=== PATIENT | female | born 1940 | race Caucasian/White ===

== ENCOUNTER 2019-07-07 17:15 | Inpatient (IN) | payer OTHER, MEDICARE ==
--- NOTE | 2019-07-07 17:19 | PDOC ---
History of Present Illness - History of Present Illness Initial Comments: 07/07/19 17:41 78f with pmh of b/l hip replacement, osteoarthritis, presents to the ED with sudden pain in her left knee as she was walking from her hair salon to her car, unable to bear weight on it. No fall. Had pain in her knee for month but had this sudden exacerbation today unlike she ever had before. Took an Advil 200mg today at 2pm with no relief. Her leg is chronically shortened and externally rotated. 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 Lives alone. Recent travel 2 weeks ago to [place], drove back 12h, 5 pee breaks. No pain or swelling after that. No active cancer, not on any hormones, no sob, no cough. <Gabino Alex - Last Filed: 07/08/19 02:33> - General History Source: Patient Exam Limitations: No Limitations <Massiel Flores - Last Filed: 07/09/19 09:29> - General Stated Complaint: LEFT LEG PAIN Time Seen by Provider: 07/07/19 17:17 Past History <Gabino Alex - Last Filed: 07/08/19 02:33> <Massiel Flores - Last Filed: 07/09/19 09:29> - Past Medical History Allergies/Adverse Reactions: Allergies Allergy/AdvReac Type Severity Reaction Status Date / Time No Known Allergies Allergy Verified 07/07/19 17:44 Review of Systems - Review of Systems Able to Perform ROS?: Yes Is the patient limited Occitan proficient: No Constitutional: No: Symptoms Reported HEENTM: No: Symptoms Reported Respiratory: No: Symptoms reported Cardiac (ROS): No: Symptoms Reported ABD/GI: No: Symptoms Reported : No: Symptoms Reported Musculoskeletal: Yes: See HPI Integumentary: No: Symptoms Reported All Other Systems: Reviewed and Negative <Gabino Alex - Last Filed: 07/08/19 02:33> *Physical Exam - Physical Exam General Appearance: Yes: Nourished, Appropriately Dressed, Apparent Distress HEENT: positive: EOMI, FARIBA, Normal ENT Inspection Respiratory/Chest: positive: Lungs Clear, Normal Breath Sounds. negative: Chest Tender, Respiratory Distress Cardiovascular: positive: Regular Rhythm, Regular Rate, S1, S2 Gastrointestinal/Abdominal: positive: Normal Bowel Sounds, Flat, Soft. negative : Tender Musculoskeletal: positive: Normal Inspection. negative: CVA Tenderness Extremity: positive: Normal Capillary Refill, Normal Inspection, Other (right leg short and ext rotated (chronic), able topassively range the knee, unable to bear weight. Knee joint has no tenderness, swelling, no erythma, normal temp compared to right one. ) Integumentary: positive: Normal Color, Dry, Warm Neurologic: positive: Fully Oriented, Alert, Normal Mood/Affect, Normal Response , Motor Strength 5/5 <Gabino Alex - Last Filed: 07/08/19 02:33> - Vital Signs Last Vital Signs Temp Pulse Resp BP Pulse Ox 98.6 F 88 18 122/58 L 97 07/09/19 09:00 07/09/19 09:00 07/09/19 09:00 07/09/19 09:00 07/08/19 20:58 <Massiel Flores - Last Filed: 07/09/19 09:29> Procedures - Consent Consent obtained: Written, From Patient - Joint Reduction Left Joint Reduction Site: left: Hip Pre-Procedure NV Exam: normal Conscious Sedation: Yes (Ketamine and Propofol) Reduction Attempts: 2 Procedure: Traction Counter Traction Post-Procedure NV Exam: normal Complications: No Post Joint Reduction Film: joint not reduced Immobilized: Yes Progress: 07/08/19 00:17 Unsuccessful <Gabino Alex Last Filed: 07/08/19 02:33> ED Treatment Course - LABORATORY CBC & Chemistry Diagram: 07/07/19 21:49 07/07/19 21:49 <Gabino Alex - Last Filed: 07/08/19 02:33> - LABORATORY CBC & Chemistry Diagram: 07/08/19 07:45 07/08/19 07:45 - ADDITIONAL ORDERS Additional order review: 07/07/19 21:49 RBC 4.38 MCV 73.2 L MCHC 30.8 L RDW 18.5 H MPV 7.4 L Neutrophils % 65.5 Lymphocytes % 26.5 Monocytes % 6.9 Eosinophils % 0.1 Basophils % 1.0 - Medications Given in the ED: ED Medications Discontinued Medications Generic Name Dose Route Start Last Admin Trade Name Freq PRN Reason Stop Dose Admin Acetaminophen 650 mg 07/07/19 17:40 07/07/19 18:48 Tylenol - PO 07/07/19 17:41 650 mg ONCE ONE Administration Acetaminophen 1,000 mg 07/08/19 02:20 07/08/19 05:32 Ofirmev Injection - IVPB 1,000 mg Q6H PRN Administration PAIN LEVEL 1-5 Enoxaparin Sodium 40 mg 07/08/19 14:00 07/08/19 14:34 Lovenox - SQ 40 mg DAILY MINOO Administration Fentanyl 50 mcg 07/08/19 17:51 07/08/19 17:53 Sublimaze Injection - IVPUSH 50 mcg [id number] PRN Administration PAIN-PACU ORDER X 4 DOSES ONLY Sodium Chloride 1,000 mls @ 75 mls/hr 07/08/19 02:30 07/08/19 03:30 Normal Saline - IV 75 mls/hr ASDIR MINOO Administration Iron Sucrose 100 mg/ Sodium 100 mls @ 200 mls/hr 07/08/19 14:30 07/08/19 16: 01 Chloride IVPB 07/08/19 14:59 200 mls/hr ONCE ONE Administration Ketamine HCl 27.5 mg 07/07/19 22:49 07/07/19 23:29 Ketalar - IVPUSH 07/07/19 22:50 27.5 mg ONCE ONE Administration Ketamine HCl 27.5 mg 07/08/19 00:01 07/08/19 00:15 Ketalar - IVPUSH 07/08/19 00:02 Not Given ONCE ONE Ketamine HCl 20 mg 07/08/19 00:01 07/08/19 00:14 Ketalar - IVPUSH 07/08/19 00:02 20 mg ONCE ONE Administration Ketamine HCl 20 mg 07/08/19 00:13 07/08/19 00:14 Ketalar - IVPUSH 07/08/19 00:14 20 mg ONCE ONE Administration Ketorolac Tromethamine 30 mg 07/07/19 17:40 07/07/19 18:47 Toradol Injection - IM 07/07/19 17:41 30 mg ONCE ONE Administration Morphine Sulfate 4 mg 07/08/19 01:05 07/08/19 01:18 Morphine Injection - IVPUSH 07/08/19 01:06 4 mg ONCE ONE Administration Morphine Sulfate 2 mg 07/08/19 02:22 07/08/19 08:42 Morphine Sulfate IVPUSH 2 mg Q6H PRN Administration PAIN LEVEL 6-10 Propofol 27,500 mcg 07/07/19 22:52 07/07/19 23:29 Diprivan - IVPUSH 07/07/19 22:53 27,500 mcg ONCE ONE Administration Propofol 27,500 mcg 07/08/19 00:01 07/08/19 00:15 Diprivan - IVPUSH 07/08/19 00:02 Not Given ONCE ONE Propofol 20,000 mcg 07/08/19 00:02 07/08/19 00:14 Diprivan - IVPUSH 07/08/19 00:03 20,000 mcg ONCE ONE Administration Propofol 20,000 mcg 07/08/19 00:14 07/08/19 00:15 Diprivan - IVPUSH 07/08/19 00:15 20,000 mcg ONCE ONE Administration <Massiel Flores - Last Filed: 07/09/19 09:29> Medical Decision Making - Medical Decision Making 07/07/19 17:56 78f with left knee/thigh pain. Low suspicion for DVT as the patient has Wells score of 0. No swelling, tenderness, immobilizations. Seems more like MSK pain. Obtaining plain films of the knee, femur and hip. Pain control with Toradol and Tylenol. Disposition will depend on ambulatory status as the patient lives alone. 07/07/19 18:48 Sent films to imaging professional poker player./ 07/07/19 20:57 There is a total left hip prosthesis with dislocation of the femoral component, suspect anterior dislocation although difficult to assess in the absence of a lateral projection There are bony productive changes about the left hip and acetabulum Total right hip arthroplasty with prosthetic components intact and in normal anatomic alignment The bony pelvis is intact The femur is intact There are degenerative changes in the left knee 07/07/19 21:00 Patient originally wanted to sign AMA convinced her to stay for admission. 07/07/19 21:[address] Wang 07/08/19 02:33 Dr. Wang recommending we try to reduce the dislocation in the ED. Moderate sedation wqith Ketamine and Propofol. Counter traction applied without success x2. Patient in more pain now. Repeat xray show worsenign fracture of the hip post reduction attempt. Patient admitted. <Gabino Alex - Last Filed: 07/08/19 02:33> *DC/Admit/Observation/Transfer - Discharge Dispostion Decision to Admit order: Yes <Gabino Alex - Last Filed: 07/08/19 02:33> <Massiel Flores - Last Filed: 07/09/19 09:29> Diagnosis at time of Disposition: Dislocation of internal left hip prosthesis, initial encounter - Discharge Dispostion Condition at time of disposition: Fair
[2019-07-07] MEDS ORDERED: KETOROLAC TROMETHAMINE 30 MG/1 ML VIAL IM ONE (17:40)
[2019-07-07] MEDS ORDERED: ACETAMINOPHEN 325 MG TABLET (FP) PO ONE (17:40)
[2019-07-07] MEDS ORDERED: ACETAMINOPHEN 325 MG TABLET (FP) ONE (18:07)
[2019-07-07] MEDS ORDERED: KETOROLAC TROMETHAMINE 30 MG/1 ML VIAL ONE (18:07)
--- NOTE | 2019-07-07 19:49 | PDOC ---
Documentation entered by Bryant Mg SCRIBE, acting as scribe for Massiel Flores MD. Massiel Flores MD: This documentation has been prepared by the Haritha goldberg Elijah, SCRIBE, under my direction and personally reviewed by me in its entirety. I confirm that the documentation accurately reflects all work, treatment, procedures, and medical decision making performed by me. Attending Attestation - Resident Resident Name: AlexGabino - ED Attending Attestation I have performed the following: I have examined & evaluated the patient, The case was reviewed & discussed with the resident, I agree w/resident's findings & plan - HPI HPI: 07/07/19 19:50 Patient is a 78 year old female with a significant past medical history of b/l hip replacement and osteoarthritis who presents to the ED with pain in the Left knee occurring earlier today. Patient reports that she was walking to the [employer] through a parking lot and was suddenly unable to bear weight. Patient is unaware of any movement she may have done that triggered the pain but notes she had sun poisoning while on vacation which resulted in both of her legs swelling up. Patient denies abdominal pain, numbness tingling and weakness. Allergies: NKA Surgical History: B/L Hip Replacement - Physicial Exam PE: 07/07/19 19:56 General: NAD, well appearing Abdomen: soft, no tenderness, nondistended Vascular: 2+ DP pulses symmetric and equal. Back: no midline tenderness, no stepoffs, FROM MSK: + LLE chronically external rotation and shortened. notable for soft compartments, Cap refill <2 sec. Proximal and distal strength 5/5, correspondence review clerk strength 5/5 - equal and symmetric. Plantar flexion and dorsiflexion 5/5. FROM. Sensation grossly intact to light touch. pelvis stable, no prox or distal lower extrem tenderness to palp Neuro: alert, no focal neurologic deficits Skin: color normal color, warm and well perfused. Cap refill <2 sec. 07/07/19 22:37 - Medical Decision Making 07/07/19 19:46 hpi as documented VS reviewed, mild tachy initially 2/2 pain Vital Signs Temp Pulse Resp BP Pulse Ox 98.7 F 101 H 16 138/70 100 07/07/19 17:15 07/07/19 17:15 07/07/19 17:15 07/07/19 17:15 07/07/19 17:15 DDX. msk strain, dislocation, arthritis, hardware malfunction. xray - s/p hardware/hip replacement. chronic shortening of LLE, neuro vasc intact. pt admits LLE is 1/2 inch shorter than contralateral, uses cane to ambulate last ortho procedure ~25 years ago, for THR. xray with left periprosthetic dislocation., no fx. with prior h/o surgery, will be difficult, ortho cs appreciated, Dr Wang/ Bruno decision science analyst and discussed care sent over image, advised closed reduction and conscious sedation. first time dislocation, basic labs/txs in case of operative management, unremarkable. 07/07/19 22:46 - procedural sedation for closed reduction attempts made with traction/countertraction x 2, unsuccessful, pt received over 1mg/kg of ketofol, due to progression and escalating doses and risks of respiratory depression, apnea and hemodynamic changes, aborted due to lack of successful by resident and myself. there was a click audible, post reduction xr with anterior dislocation still present. prior old fx visualized and pronounced, with the hardware still in place, likely from reduction attempts. this was discussed with the patient, made aware of complication and difficulty with reduction with hardware in place and fracture at the prox femur.. no hemodynamic changes, maintained airway, appropriate nystagmus with ketamine. will admit for periprosthetic hip dislocation failing closed reduction attempt with procedure sedation, ortho eval in the AM and further management, possibly operative. unable to ambulate with dislocation, unsafe for discharge. 07/08/19 00:13 07/08/19 00:16 07/08/19 01:13 07/08/19 02:14
--- NOTE | 2019-07-07 21:55 | PN ---
Teaching Attending Note Name of Resident: Stephon Mcwilliams ATTENDING PHYSICIAN STATEMENT I saw and evaluated the patient. I reviewed the resident's note and discussed the case with the resident. I agree with the resident's findings and plan as documented. SUBJECTIVE: Patient is a 78 year old woman with PMH of Bilateral hip replacement (20 years ago) and Osteoarthritis who presents to the ER with sudden pain in her left knee as she was walking from her hair salon to her car, unable to bear weight on it. Did not fall down. Had pain in her knee for month but had this sudden exacerbation today unlike she ever had before. Took an Advil 200mg today at 2 pm with no relief. Her leg is chronically shortened and externally rotated. Lives alone. Recent travel 2 weeks ago to [place], drove back 12h, 5 pee breaks. No pain or swelling after that. No active cancer and not on any hormones. Takes 324 mg Aspirin daily. Has insomnia. Has FH of Afib. Denies SOB, cough, fever, chills, nausea, vomiting, chest pain, abdominal pain, dysuria or diarrhea. OBJECTIVE: Alert Vital Signs Period Temp Pulse Resp BP Sys/Raymond Pulse Ox Last 24 Hr 98.7 F 91-101 16-18 138-143/68-70 98-100 HEENT: No Jaundice, eye redness or discharge, PERRLA, EOMI. Normocephalic, atraumatic. External ears are normal and hearing is grossly intact. No nasal discharge. Neck: Supple, nontender. No palpable adenopathy or thyromegaly. No JVD Chest: Good effort. Clear to auscultation and percussion. Heart: Regular. No S3, rub or murmur Abdomen: Not distended, soft, nontender and no HSM. No rebound or guarding. Normal bowel sounds. Ext: Peripheral pulses intact. No leg edema. LLE is shorter and externally rotated. Tender left hip and limited ROM. Skin: Warm and dry. No petechiae, rash or ecchymosis. Neuro: Alert. Oriented x3. CN 2-12 grossly intact. Sensation grossly intact in all four extremities and DTR are symmetric. Psych: Appropriate mood and affect. Good insight. Current Medications Generic Name Dose Route Start Last Admin Trade Name Freq PRN Reason Stop Dose Admin Acetaminophen 1,000 mg 07/08/19 02:20 Ofirmev Injection - IVPB Q6H PRN PAIN LEVEL 1-5 Heparin Sodium (Porcine) 5,000 unit 07/08/19 10:00 Heparin - SQ Q8H-IV MINOO Sodium Chloride 1,000 mls @ 75 mls/hr 07/08/19 02:30 Normal Saline - IV ASDIR MINOO Morphine Sulfate 2 mg 07/08/19 02:22 Morphine Injection - IVPUSH Q6H PRN PAIN LEVEL 6-10 Abnormal Lab Results 07/07/19 07/07/19 21:49 21:49 Hgb 9.9 L Hct 32.0 L MCV 73.2 L MCH 22.5 L MCHC 30.8 L RDW 18.5 H Plt Count 469 H MPV 7.4 L Chloride 110 H Anion Gap 4 L BUN 18.5 H ASSESSMENT AND PLAN: 1. Dislocated Left Hip Prosthesis/?Left Hip Fracture - Initial hip xray showed that "there is a total left hip prosthesis with dislocation of the femoral component, suspect anterior dislocation although difficult to assess in the absence of a lateral projection. There are bony productive changes about the left hip and acetabulum. Total right hip arthroplasty with prosthetic components intact and in normal anatomic alignment. The bony pelvis is intact. The femur is intact There are degenerative changes in the left knee." After an attempted bedside reduction, repeat xray showed possible left femur fracture. Ortho being consulted. Will get Urinalysis, EKG and use tylenol for pain control. Hydrate gently. 2. Low MCV Anemia - May have GI blood loss partly due to her daily use of Aspirin 324 mg. Will refer to GI for possible EGD and colonoscopy. Get basic anemia work up including serial stool guaiacs, reticulocyte count and iron studies. Counseled to stop high dose NSAIDS and rather use Aspirin 81 mg. 3. DVT prophylaxis - Lovenox 40 mg SQ q 24 hours. 4. Advance directives - Full code
[2019-07-07 21:56] LABS: EOS % 0.1 % (0-4.5); HEMOGLOBIN 9.9 GM/dL (10.7-15.3); LYMPH % 26.5 % (8-40); MCH 22.5 pg (25.7-33.7); MCHC 30.8 g/dl (32.0-36.0); MEAN CELL VOLUME 73.2 fl (80-96); MEAN PLT VOLUME 7.4 fl (7.5-11.1); MONO % 6.9 % (3.8-10.2); NEUT % 65.5 % (42.8-82.8); PLATELET COUNT 469 K/MM3 (134-434); RBC 4.38 M/mm3 (3.60-5.2); RDW 18.5 % (11.6-15.6); WHITE BLOOD COUNT 8.6 K/mm3 (4.0-10.0)
[2019-07-07 22:22] LABS: ALBUMIN 3.4 g/dl (3.4-5.0); BILIRUBIN,TOTAL 0.3 mg/dL (0.2-1); BLOOD UREA NITROGEN 18.5 mg/dL (7-18); CALCIUM 9.4 mg/dL (8.5-10.1); CREATININE 0.9 mg/dL (0.55-1.3); POTASSIUM 4.2 mmol/L (3.5-5.1); TOT PROT 6.8 g/dl (6.4-8.2)
[2019-07-07 22:34] LABS: INR 1.05 (0.83-1.09); PROTHROMBIN TIME (PATIENT) 12.4 SEC (9.7-13.0)
[2019-07-07] MEDS ORDERED: KETAMINE HCL 200 MG/20 ML VIAL IVPUSH ONE (22:49)
[2019-07-07] MEDS ORDERED: PROPOFOL 200 MG/20 ML VIAL IVPUSH ONE (22:52)
[2019-07-07] MEDS ORDERED: PROPOFOL 20 ML ONE (23:23)
[2019-07-07] MEDS ORDERED: KETAMINE HCL 200 MG/20 ML VIAL ONE (23:23)
[2019-07-08] MEDS ORDERED: PROPOFOL 200 MG/20 ML VIAL IVPUSH ONE ×3 (00:01→00:14)
[2019-07-08] MEDS ORDERED: KETAMINE HCL 200 MG/20 ML VIAL IVPUSH ONE ×3 (00:01→00:13)
[2019-07-08] MEDS ORDERED: morphine CARPU-JECT 4 MG/1 ML DISP.SYRIN IVPUSH ONE (01:05)
[2019-07-08] MEDS ORDERED: morphine SULFATE 4 MG/ML VIAL ONE (01:13)
[2019-07-08 02:06] VITALS: BMI 22.0
[2019-07-08] MEDS ORDERED: ACETAMINOPHEN 1000 MG/100 ML VIAL (NON FORMULARY) IVPB PRN ×2 (02:20→17:43)
[2019-07-08] MEDS ORDERED: MORPHINE SULFATE 2 MG/ML VIAL IVPUSH PRN (02:22)
[2019-07-08] MEDS ORDERED: SODIUM CHLORIDE 1,000 ML IV SCH ×2 (02:30→17:43)
--- NOTE | 2019-07-08 02:49 | HP ---
CHIEF COMPLAINT: LEFT hip pain PCP: None; pt denies any primary medical care and never had screening including pap smear, mammography, DEXA, colonoscopy HISTORY OF PRESENT ILLNESS: Pt describes walking in parking lot on even asphalt when she was suddenly unable to bear wt on the LEFT hip. Pain is located at the LEFT hip, sudden onset , sharp character, no association, made better by removal of wt bearing, constant, not aleviated by by NSAID. No trauma, no fall, no LOC. In ED initial xray demonstrated prosthetic femur dislocation. Reduction attempted in ED w pt under ketamine and propofol sedation. Pain was not relieved. 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 Lives alone Smoking: denies Alcohol: denies Drugs: denies Family History: Father: denies; Mother: Cardiomyopathy, a fib, osteoarthritis, macular degeneration Allergies: KNFDA No Known Allergies Allergy (Verified 07/07/19 17:44) HOME MEDICATIONS: REVIEW OF SYSTEMS CONSTITUTIONAL: Absent: fever, chills, diaphoresis, generalized weakness, malaise, loss of appetite, weight change HEENT: Absent: rhinorrhea, nasal congestion, throat pain, throat swelling, difficulty swallowing, mouth swelling, ear pain, eye pain, visual changes CARDIOVASCULAR: Absent: chest pain, syncope, palpitations, irregular heart rate, lightheadedness , peripheral edema RESPIRATORY: Absent: cough, shortness of breath, dyspnea with exertion, orthopnea, wheezing, stridor, hemoptysis GASTROINTESTINAL: Absent: abdominal pain, abdominal distension, nausea, vomiting, diarrhea, constipation, melena, hematochezia GENITOURINARY: Absent: dysuria, frequency, urgency, hesitancy, hematuria, flank pain, genital pain MUSCULOSKELETAL: Absent: myalgia, arthralgia, joint swelling, back pain, neck pain SKIN: Absent: rash, itching, pallor HEMATOLOGIC/IMMUNOLOGIC: Absent: easy bleeding, easy bruising, lymphadenopathy, frequent infections ENDOCRINE: Absent: unexplained weight gain, unexplained weight loss, heat intolerance, cold intolerance NEUROLOGIC: Absent: headache, focal weakness or paresthesias, dizziness, unsteady gait, seizure, mental status changes, bladder or bowel incontinence PSYCHIATRIC: Absent: anxiety, depression, suicidal or homicidal ideation, hallucinations. PHYSICAL EXAMINATION Vital Signs - 24 hr 07/07/19 07/07/19 07/07/19 17:15 20:55 23:06 Temperature 98.7 F Pulse Rate 101 H Pulse Rate [ 91 H 81 Left] Respiratory 16 18 18 Rate Blood Pressure 138/70 Blood Pressure 143/68 115/56 L [Left] O2 Sat by Pulse 100 98 100 Oximetry (%) 07/08/19 07/08/19 07/08/19 01:10 01:58 02:09 Temperature 98.6 F 97.7 F Pulse Rate 89 Pulse Rate [ 84 Left] Respiratory 22 H 20 Rate Blood Pressure 156/78 Blood Pressure 159/80 [Left] O2 Sat by Pulse 99 97 Oximetry (%) GENERAL: AOx3, in no acute distress. HEAD: NCAT EYES: MICHAEL, EOMI, conjunctiva clear. EARS, NOSE, THROAT: Ears normal, nares patent, oropharynx clear without exudates. Moist mucous membranes. NECK: Normal range of motion, supple without lymphadenopathy, JVD, or masses. LUNGS: CTAB . No wheezes, and no crackles. No accessory muscle use. HEART: RRR s1 s2 ABDOMEN: Soft, BS present in all 4 quadrants, non-distended, no JVD, MUSCULOSKELETAL: No bony deformities or tenderness. No CVA tenderness. UPPER EXTREMITIES: 2+ pulses, warm, well-perfused. No cyanosis. No clubbing. No peripheral edema. LOWER EXTREMITIES: POINT TENDERNESS AREA OF LEFT PROXIMAL FEMUR 2+ pulses, warm , well-perfused. No calf tenderness. No peripheral edema. NEUROLOGICAL: Cranial nerves II-XII intact. Normal speech. Gait not appreciated. PSYCHIATRIC: Cooperative. Good eye contact. Appropriate mood and affect. SKIN: Diffuse thermal farris (returned from [place] s/p sun "poisoning") Warm, dry, normal turgor, normal capillary refill. Laboratory Results - last 24 hr 07/07/19 07/07/1919 21:49 21:49 21:49 WBC 8.6 RBC 4.38 Hgb 9.9 L Hct 32.0 L MCV 73.2 L MCH 22.5 L MCHC 30.8 L RDW 18.5 H Plt Count 469 H MPV 7.4 L Absolute Neuts (auto) 5.6 Neutrophils % 65.5 Lymphocytes % 26.5 Monocytes % 6.9 Eosinophils % 0.1 Basophils % 1.0 Nucleated RBC % 0 PT with INR INR PTT (Actin FS) 31.5 Sodium 142 Potassium 4.2 Chloride 110 H Carbon Dioxide 29 Anion Gap 4 L BUN 18.5 H Creatinine 0.9 Est GFR (CKD-EPI)AfAm 71.48 Est GFR (CKD-EPI)NonAf 61.67 Random Glucose 105 Calcium 9.4 Total Bilirubin 0.3 AST 15 ALT 18 Alkaline Phosphatase 79 Total Protein 6.8 Albumin 3.4 Blood Type Antibody Screen 07/07/19 07/07/19 21:49 21:49 WBC RBC Hgb Hct MCV MCH MCHC RDW Plt Count MPV Absolute Neuts (auto) Neutrophils % Lymphocytes % Monocytes % Eosinophils % Basophils % Nucleated RBC % PT with INR 12.40 INR 1.05 PTT (Actin FS) Sodium Potassium Chloride Carbon Dioxide Anion Gap BUN Creatinine Est GFR (CKD-EPI)AfAm Est GFR (CKD-EPI)NonAf Random Glucose Calcium Total Bilirubin AST ALT Alkaline Phosphatase Total Protein Albumin Blood Type O POSITIVE Antibody Screen Negative ASSESSMENT/PLAN: 78 y/o F w PMH ostoarthritis, insmonia, BL hip replacement c/o LEFT hip pain s/ p dislocation. Unsuccessful reduction in ED. # LEFT femur fracture - Ortho consulted - Morphine and ofrimev for pain - NPO # Microcytic anemia - Trend H/H - Retic count - R/o bleed - FOBT # Thermal burn - 2/2 to sun exposure in [place], [place] - Educated on need for sun block - Provide emolients - Hydrate appropriately # Health care maintenance - Pt has never had a primary care provider but agrees to seeing one on d/c # F/E/N - NS - Monitor electrolytes - NPO # DVT prophylaxis - Lovenox # Disposition - med/surg Truman Dueñas MD Visit type - Emergency Visit Emergency Visit: Yes ED Registration Date: 07/08/19 Care time: The patient presented to the Emergency Department on the above date and was hospitalized for further evaluation of their emergent condition. - New Patient This patient is new to me today: Yes Date on this admission: 07/08/19 - Critical Care Critical Care patient: No ATTENDING PHYSICIAN STATEMENT I saw and evaluated the patient. I reviewed the resident's note and discussed the case with the resident. I agree with the resident's findings and plan as documented. SUBJECTIVE: OBJECTIVE: ASSESSMENT AND PLAN:
[2019-07-08 08:33] LABS: HEMATOCRIT 30.1 % (32.4-45.2); HEMOGLOBIN 9.2 GM/dL (10.7-15.3); MCH 22.3 pg (25.7-33.7); MCHC 30.5 g/dl (32.0-36.0); MEAN CELL VOLUME 73.4 fl (80-96); MEAN PLT VOLUME 7.6 fl (7.5-11.1); PLATELET COUNT 439 K/MM3 (134-434); RBC 4.11 M/mm3 (3.60-5.2); RDW 18.8 % (11.6-15.6); WHITE BLOOD COUNT 7.5 K/mm3 (4.0-10.0)
[2019-07-08 08:45] LABS: INR 1.04 (0.83-1.09); PROTHROMBIN TIME (PATIENT) 12.3 SEC (9.7-13.0)
[2019-07-08 08:48] LABS: ACTIVATED PTT 30.5 SECONDS (25.2-36.5)
[2019-07-08 08:54] LABS: ALBUMIN 3.1 g/dl (3.4-5.0); BILIRUBIN,TOTAL 0.5 mg/dL (0.2-1); BLOOD UREA NITROGEN 20.4 mg/dL (7-18); CALCIUM 8.9 mg/dL (8.5-10.1); CREATININE 0.7 mg/dL (0.55-1.3); MAGNESIUM 2.5 mg/dL (1.8-2.4); PHOSPHOROUS 4.2 mg/dL (2.5-4.9); POTASSIUM 4.7 mmol/L (3.5-5.1); TOT PROT 6.2 g/dl (6.4-8.2)
[2019-07-08] MEDS ORDERED: HEPARIN NA (PORCINE) 5,000 UNITS/ML 1ML VIAL SQ SCH (10:00)
--- NOTE | 2019-07-08 10:29 | PN ---
Progress Note (short form) - Note Progress Note: Pt seen and examined. In short she is a 78 year old female pt 20+ years s/p left total hip replacement by Dr Henning. She never dislocated her left hip before. She was just walking and she dislocated her left hip yesterday. She is unable to ambulate. She c/o mod pain left hip. X-rays Show a dislocated left total hip prosthesis (only AP views, likely posterior dislocation) The acetabular cup is in too much vertical version There is a broken piece of hardware, I do not know where it is from There is also what appears to be an acute transverse fracture of the left proximal femur inter trochanteric area, PE LLE is shortened and externally rotated LLE is NVI Good ROM with min pain in the left knee, ankle, foot, toes She is comfortable, in NAD, in knee immobilizer Imp 78 year old F s/p left hip dislocation. Rec NPO Medical clearance To OR for an attempted closed reduction I explained to the pt in detail the possible scenarios. If I can reduce the hip and its stable, then she may not need revision hip surgery. More likely however, is that either it is irreducible because of the broken hardware, or unstable bc of the vertical version of the cup, or her femur fracture gets displaced during the attemoted closed reduction, all of which would necessitate a revision left hip surgery. I also explained that I do not perform that surgery , and if she needed it she would either have to be transferred, or wait until tuesday to get it done in this hospital. She understands all the different scenarios. We will proceed with an attempted closed reduction.
[2019-07-08] MEDS ORDERED: ENOXAPARIN NA (PORCINE) 40 MG/0.4 ML DISP.SYRIN SQ SCH (14:00)
--- NOTE | 2019-07-08 14:13 | PN ---
Progress Note (short form) - Note Progress Note: SUBJECTIVE: Complains of L hip pain. No fever/chills. OBJECTIVE: Afebrile, Hemodynamically Stable Last Vital Signs Temp Pulse Resp BP Pulse Ox 98.3 F 70 20 137/63 97 07/08/19 08:52 07/08/19 08:52 07/08/19 08:57 07/08/19 08:52 07/08/19 08:57 HEENT - Atramatic, Normocephalic. Heart - S1, S2, SM Lungs - clear to auscultation Abdomen - Soft, non-tender. Bowel Sounds normal. Extremities - LLE shortened and externally rotated, unable to flex at hip. Neuro - AAO x 3. Moving all other extremities besides LLE. Laboratory Results - last 24 hr 07/07/19 07/07/19 07/07/19 21:49 21:49 21:49 WBC 8.6 RBC 4.38 Hgb 9.9 L Hct 32.0 L MCV 73.2 L MCH 22.5 L MCHC 30.8 L RDW 18.5 H Plt Count 469 H MPV 7.4 L Absolute Neuts (auto) 5.6 Neutrophils % 65.5 Lymphocytes % 26.5 Monocytes % 6.9 Eosinophils % 0.1 Basophils % 1.0 Nucleated RBC % 0 PT with INR INR PTT (Actin FS) 31.5 Sodium 142 Potassium 4.2 Chloride 110 H Carbon Dioxide 29 Anion Gap 4 L BUN 18.5 H Creatinine 0.9 Est GFR (CKD-EPI)AfAm 71.48 Est GFR (CKD-EPI)NonAf 61.67 Random Glucose 105 Calcium 9.4 Phosphorus Magnesium Iron TIBC Iron Saturation Unsaturated IBC Total Bilirubin 0.3 AST 15 ALT 18 Alkaline Phosphatase 79 Total Protein 6.8 Albumin 3.4 Blood Type Antibody Screen 07/07/19 07/07/19 07/08/19 21:49 21:49 07:45 WBC RBC Hgb Hct MCV MCH MCHC RDW Plt Count MPV Absolute Neuts (auto) Neutrophils % Lymphocytes % Monocytes % Eosinophils % Basophils % Nucleated RBC % PT with INR 12.40 INR 1.05 PTT (Actin FS) Sodium Potassium Chloride Carbon Dioxide Anion Gap BUN Creatinine Est GFR (CKD-EPI)AfAm Est GFR (CKD-EPI)NonAf Random Glucose Calcium Phosphorus Magnesium Iron TIBC Iron Saturation Unsaturated IBC Total Bilirubin AST ALT Alkaline Phosphatase Total Protein Albumin Blood Type O POSITIVE Cancelled Antibody Screen Negative 07/08/19 07/08/19 07/08/19 07:45 07:45 07:45 WBC 7.5 RBC 4.11 Hgb 9.2 L Hct 30.1 L MCV 73.4 L MCH 22.3 L MCHC 30.5 L RDW 18.8 H Plt Count 439 H MPV 7.6 Absolute Neuts (auto) Neutrophils % Lymphocytes % Monocytes % Eosinophils % Basophils % Nucleated RBC % PT with INR 12.30 INR 1.04 PTT (Actin FS) 30.5 Sodium 143 Potassium 4.7 Chloride 110 H Carbon Dioxide 29 Anion Gap 4 L BUN 20.4 H Creatinine 0.7 Est GFR (CKD-EPI)AfAm 96.86 Est GFR (CKD-EPI)NonAf 83.57 Random Glucose 94 Calcium 8.9 Phosphorus 4.2 Magnesium 2.5 H Iron 62 TIBC 359 Iron Saturation 17 L Unsaturated IBC 297 H Total Bilirubin 0.5 AST 15 ALT 17 Alkaline Phosphatase 72 Total Protein 6.2 L Albumin 3.1 L Blood Type Antibody Screen 07/08/19 07:45 WBC RBC Hgb Hct MCV MCH MCHC RDW Plt Count MPV Absolute Neuts (auto) Neutrophils % Lymphocytes % Monocytes % Eosinophils % Basophils % Nucleated RBC % PT with INR INR PTT (Actin FS) Sodium Potassium Chloride Carbon Dioxide Anion Gap BUN Creatinine Est GFR (CKD-EPI)AfAm Est GFR (CKD-EPI)NonAf Random Glucose Calcium Phosphorus Magnesium Iron TIBC Iron Saturation Unsaturated IBC Total Bilirubin AST ALT Alkaline Phosphatase Total Protein Albumin Blood Type O POSITIVE Antibody Screen Current Medications Generic Name Dose Route Start Last Admin Trade Name Freq PRN Reason Stop Dose Admin Acetaminophen 1,000 mg 07/08/19 02:20 07/08/19 05:32 Ofirmev Injection - IVPB 1,000 mg Q6H PRN Administration PAIN LEVEL 1-5 Enoxaparin Sodium 40 mg 07/08/19 14:00 Lovenox - SQ DAILY MINOO Sodium Chloride 1,000 mls @ 75 mls/hr 07/08/19 02:30 07/08/19 03:30 Normal Saline - IV 75 mls/hr ASDIR MINOO Administration Morphine Sulfate 2 mg 07/08/19 02:22 07/08/19 08:42 Morphine Sulfate IVPUSH 2 mg Q6H PRN Administration PAIN LEVEL 6-10 Home Medications Medication Instructions Recorded Aspirin Coated [Ecotrin -] 325 mg PO DAILY 07/08/19 Calcium Polycarbophil [Fibercon] 2 PO 07/08/19 Centrum Silver Tablet PO DAILY 07/08/19 Docusate Sodium [Colace -] 200 mg PO DAILY 07/08/19 ASSESSMENT/PLAN 78 year old female with no significant PMH, OA, s/p prior L hip replacement ( 1998, [facility]), prior R hip replacement (2000, [facility]), admitted with dislocated L femoral prosthesis and intertrochanteric L femur fracture, failed reduction in ED. 1. Left femoral prosthesis dislocation and L femoral intertrochanteric fracture Failed ED attempt at reduction Evaluated by Orthopedic Sx - for attempt at reduction in OR. may require further surgery including revision Sx. Further guidance as per Ortho. NPO, Rolando-op IV hydration, DVT Px PT once cleared by Ortho Morphine analgesia. ECG - non-specific T wave changes lateral leads. CXR - no acute cardiopulmonary findings. No history of CAD, no exertional symptoms, no CP/SOB Patient at moderate risk for proposed procedure. 2. FILOMENA (Microcytic) Iron Sat 17% Needs out-patient work-up. Will give IV Venofer x 1 dose for now. Will transfuse as required rolando-operatively. DVT Px - Lovenox SQ Visit type - Emergency Visit Emergency Visit: Yes ED Registration Date: 07/08/19 Care time: The patient presented to the Emergency Department on the above date and was hospitalized for further evaluation of their emergent condition. - New Patient This patient is new to me today: Yes Date on this admission: 07/08/19 - Critical Care Critical Care patient: No - Discharge Referral Referred to [facility] Med P.C.: No
[2019-07-08] MEDS ORDERED: IRON SUCROSE INJECTION 100 MG in SODIUM CHLORIDE 95 ML IVPB ONE (14:30)
[2019-07-08] MEDS ORDERED: PROPOFOL 20 ML ONE ×2 (16:32)
[2019-07-08] MEDS ORDERED: MIDAZOLAM HCL 2 MG/2 ML SINGLE DOSE VIAL ONE (16:32)
--- NOTE | 2019-07-08 17:24 | OP ---
Operative Note - Note: Operative Date: 07/08/19 Pre-Operative Diagnosis: dislocated left THR prosthesis Operation: (attempted) closed reduction under anesthesia, left hip Post-Operative Diagnosis: Same as Pre-op Surgeon: Bhupinder Wang Anesthesiologist/FILTER OPERATOR: Emilie Ortez Anesthesia: General Estimated Blood Loss (mls): 0 Drains, Volume Out (mls): 0 Blood Volume Replaced (mls): 0 Fluid Volume Replaced (mls): 500 Operative Report Dictated: Yes
[2019-07-08] MEDS ORDERED: LACTATED RINGERS SOLUTION 1,000 ML IV SCH (18:00)
--- NOTE | 2019-07-08 18:35 | OP ---
DATE OF OPERATION: DATE OF DICTATION: 07/08/2019 PREOPERATIVE DIAGNOSIS: Dislocated left total hip replacement prosthesis. POSTOPERATIVE DIAGNOSIS: Dislocated left total hip replacement prosthesis. PROCEDURE: Attempted closed reduction left hip prosthesis under anesthesia. SURGEON: Javid Mcneal MD EPITAXIAL REACTOR OPERATOR: None. ANESTHESIOLOGIST: Emilie Ortez MD ANESTHESIA: General anesthesia. DRAINS: None. COMPLICATIONS: None. SPECIMEN: None. BLOOD LOSS: None. BLOOD GIVEN: None. FLUID REPLACEMENT: 500 mL. INDICATIONS: This patient is a 78-year-old female with a preoperative diagnosis of a dislocated left total hip replacement prosthesis. She had a left total hip replacement by Dr. Milady corcoran over 20 years ago. She never dislocated before. She was just walking across a parking lot, felt a pop, had severe pain in the hip and thigh, was unable to walk. In the ER, x-rays were done confirming a dislocated left total hip replacement. X-rays also showed that she had an acute transverse, slightly oblique left intertrochanteric femur fracture. The prosthesis may prove to be loose and, therefore, uncontrollable by an attempted closed reduction. She and I had extensive preoperative discussions. There were several potential results from attempting a closed reduction in the emergency room. Either 1, I would be able to reduce it, and it would be stable in which case she may not need surgery or 2, I would reduce it but it would prove to be highly unstable and re-dislocate possibly even in the operating room in which case she would need a hip revision or 3, I would unable to reduce it in which case she would need a hip revision. The patient understands all these potential risks, and more than likely, she would need a left hip revision especially considering there may be a broken portion of a locking mechanism, and she has a left hip intertrochanteric femur fracture, which may have lost stability of the proximal aspect of the femur stem. DESCRIPTION OF PROCEDURE: The patient was brought to the operating room, and she received propofol. She was completely unconscious and relaxed, although breathing on her own. We did multiple x-rays with a large C-arm fluoroscopy documenting what appeared to be an anterior left hip dislocation. Her leg was in a position of shortening and external rotation. I attempted many reductions using several different techniques, and I was unsuccessful in reducing her left hip. As not to injure her further or potentially dislodge the femoral fracture or the stem, eventually I chose to stop. X-rays were taken documenting that it was still dislocated. She was put back into her left knee immobilizer and brought to the regular recovery room in stable condition. Total attempted time of closed reduction was approximately 15 minutes. There were no complications during the case. The patient tolerated the procedure quite well. Efforts will be made to discuss with the patient hip revision surgery as her previous surgeon, Dr. Henning, is now retired. JAVID MCNEAL M.D. [id number]
[2019-07-08] MEDS: MORPHINE SULFATE 2 MG/ML VIAL IVPUSH PRN (20:09)
[2019-07-09] MEDS: MORPHINE SULFATE 2 MG/ML VIAL IVPUSH PRN ×2 (02:05→08:43)
[2019-07-09 08:11] VITALS: TEMP 98.6
--- NOTE | 2019-07-09 08:13 | PN ---
Progress Note (short form) - Note Progress Note: Anesthesia Pt seen and examined S:Alert and awake O: Vital Signs Temperature 98.6 F 07/09/19 06:00 Pulse Rate 87 07/09/19 06:00 Respiratory Rate 20 07/09/19 06:00 Blood Pressure 127/59 L 07/09/19 06:00 O2 Sat by Pulse Oximetry (%) 97 07/08/19 20:58 CBC, BMP 07/08/19 07:45 07/08/19 07:45 A/P: Current Active Problems Dislocation of internal left hip prosthesis, initial encounter (Acute) s/p closed reduction of left hip Doing well post op Continue current care Veto Kelly MD
[2019-07-09 09:08] VITALS: BP 122/58; PULSE 88
--- NOTE | 2019-07-09 09:18 | EKG ---
Test Reason : Blood Pressure : / mmHG Vent. Rate : 084 BPM Atrial Rate : 084 BPM P-R Int : 138 ms QRS Dur : 076 ms QT Int : 388 ms P-R-T Axes : 062 035 049 degrees QTc Int : 458 ms SINUS RHYTHM WITH OCCASIONAL PREMATURE VENTRICULAR COMPLEXES NONSPECIFIC T WAVE ABNORMALITY ABNORMAL ECG NO PREVIOUS ECGS AVAILABLE Confirmed by SWAPNA HORNER, NACHO ([id number]) on 07/09/2019 9:18:26 AM Referred By: Frankie CHAUDHRY Confirmed By:NACHO BARCENAS MD
[2019-07-09] MEDS ORDERED: ENOXAPARIN NA (PORCINE) 40 MG/0.4 ML DISP.SYRIN SQ SCH (10:00)
[2019-07-09 10:23] LABS: BASO % 0.7 % (0-2.0); EOS % 1.6 % (0-4.5); HEMATOCRIT 25.9 % (32.4-45.2); HEMOGLOBIN 7.9 GM/dL (10.7-15.3); MCH 22.6 pg (25.7-33.7); MCHC 30.7 g/dl (32.0-36.0); MEAN CELL VOLUME 73.5 fl (80-96); MEAN PLT VOLUME 7.8 fl (7.5-11.1); NEUT % 65.7 % (42.8-82.8); PLATELET COUNT 343 K/MM3 (134-434); RBC 3.52 M/mm3 (3.60-5.2); RDW 18.8 % (11.6-15.6); WHITE BLOOD COUNT 6.8 K/mm3 (4.0-10.0)
[2019-07-09 10:54] LABS: CALCIUM 8.3 mg/dL (8.5-10.1); CREATININE 0.6 mg/dL (0.55-1.3); POTASSIUM 4.3 mmol/L (3.5-5.1)
--- NOTE | 2019-07-09 14:50 | DS ---
Physical Exam: SUBJECTIVE: Patient seen and examined this AM. Continues to have 4/10 Pain in the LLE. No acute overnight events as per nursing. OBJECTIVE: Vital Signs Period Temp Pulse Resp BP Sys/Raymond Pulse Ox Last 24 Hr 97.7 F-98.6 F 73-88 12-20 105-145/52-82 97-100 PHYSICAL EXAM GENERAL: A&Ox3, NAD HEAD: NCAT EYES: PERRL, EOMI ENT: moist mucous membranes NECK: supple LUNGS: CTAB, no wheezes, no crackles HEART: Regular rate and rhythm, S1, S2 without murmur ABDOMEN: Soft, nontender, nondistended, + bowel sounds, no guarding, no rebound EXTREMITIES: No edema. LLE Immobilizer in place. LLE Shortened and externally rotated. NEUROLOGICAL: Cranial nerves II through XII grossly intact. Normal speech. 5/5 muscle strength to dorsiflexion and plantarflexion. Gross sensation intact throughout. SKIN: Warm, dry. LABS Laboratory Last Values WBC 6.8 K/mm3 (4.0-10.0) 07/09/19 09:30 RBC 3.52 M/mm3 (3.60-5.2) L 07/09/19 09:30 Hgb 7.9 GM/dL (10.7-15.3) L 07/09/19 09:30 Hct 25.9 % (32.4-45.2) L 07/09/19 09:30 MCV 73.5 fl (80-96) L 07/09/19 09:30 MCH 22.6 pg (25.7-33.7) L 07/09/19 09:30 MCHC 30.7 g/dl (32.0-36.0) L 07/09/19 09:30 RDW 18.8 % (11.6-15.6) H 07/09/19 09:30 Plt Count 343 K/MM3 (134-434) D 07/09/19 09:30 MPV 7.8 fl (7.5-11.1) 07/09/19 09:30 Absolute Neuts (auto) 4.5 K/mm3 (1.5-8.0) 07/09/19 09:30 Neutrophils % 65.7 % (42.8-82.8) 07/09/19 09:30 Lymphocytes % 23.0 % (8-40) 07/09/19 09:30 Monocytes % 9.0 % (3.8-10.2) 07/09/19 09:30 Eosinophils % 1.6 % (0-4.5) D 07/09/19 09:30 Basophils % 0.7 % (0-2.0) 07/09/19 09:30 Nucleated RBC % 0 % (0-0) 07/09/19 09:30 PT with INR 12.30 SEC (9.7-13.0) 07/08/19 07:45 INR 1.04 (0.83-1.09) 07/08/19 07:45 PTT (Actin FS) 30.5 SECONDS (25.2-36.5) 07/08/19 07:45 Sodium 142 mmol/L (136-145) 07/09/19 09:30 Potassium 4.3 mmol/L (3.5-5.1) 07/09/19 09:30 Chloride 111 mmol/L (98-107) H 07/09/19 09:30 Carbon Dioxide 28 mmol/L (21-32) 07/09/19 09:30 Anion Gap 4 MMOL/L (8-16) L 07/09/19 09:30 BUN 19.0 mg/dL (7-18) H 07/09/19 09:30 Creatinine 0.6 mg/dL (0.55-1.3) 07/09/19 09:30 Est GFR (CKD-EPI)AfAm 101.90 07/09/19 09:30 Est GFR (CKD-EPI)NonAf 87.92 07/09/19 09:30 Random Glucose 91 mg/dL (74-106) 07/09/19 09:30 Calcium 8.3 mg/dL (8.5-10.1) L 07/09/19 09:30 Phosphorus 4.2 mg/dL (2.5-4.9) 07/08/19 07:45 Magnesium 2.5 mg/dL (1.8-2.4) H 07/08/19 07:45 Iron 62 ug/dL (50-175) 07/08/19 07:45 TIBC 359 ug/dL (250-450) 07/08/19 07:45 Iron Saturation 17 % (17.5-39) L 07/08/19 07:45 Unsaturated IBC 297 ug/dL (200-275) H 07/08/19 07:45 Ferritin 159.7 ng/ml (8-388) 07/09/19 09:30 Total Bilirubin 0.5 mg/dL (0.2-1) 07/08/19 07:45 AST 15 U/L (15-37) 07/08/19 07:45 ALT 17 U/L (13-61) 07/08/19 07:45 Alkaline Phosphatase 72 U/L (45-117) 07/08/19 07:45 Total Protein 6.2 g/dl (6.4-8.2) L 07/08/19 07:45 Albumin 3.1 g/dl (3.4-5.0) L 07/08/19 07:45 Blood Type O POSITIVE 07/08/19 07:45 Antibody Screen Negative 07/07/19 21:49 IMAGING: -Left Hip/Pelvis XRay (07/07): Dislocated left femoral prosthesis. Intertrochanteric fracture left hip. Correlation recommended. -Left Femur XRay: 2 views of the mid and lower left femur in the lateral projection only reveal no sign of a gross fracture. There is hardware stabilizing the proximal left femur. There is loss of bone density and degenerative changes. This is a limited exam. Further evaluation suggested. -Left Knee XRay: A single AP view of the left knee reveals degenerative changes with no sign of a gross fracture. Other views of the left knee are associated with other studies. Again there is no sign of a gross fracture. Correlation recommended. This is a limited study. -Left Hip/Pelvis XRay (07/08): Dislocated femoral prosthesis. Proximal left femoral shaft fracture. -CXR: No acute chest pathology. HOSPITAL COURSE: Date of Admission:07/08/19 Date of Discharge: 07/09/19 78 y/o F with PMHx of OA, insmonia, s/p B/L hip replacement presented with Sudden onset LLE Pain and was admitted for dislocated L Femoral prosthesis dislocation and intertrochanteric L femur fracture s/p failed reduction in ED. Imaging and Labwork noted above. Orthopedic surgery was consulted and patient underwent an unsuccessful attempt at closed reduction under anesthesia in the OR. Her pain was controlled via IV analgesia and it was recommended patient be transferred for revision surgery not available at [facility]. Patient was accepted at [facility] by Dr. Jaimes for orthopedic evaluation and intervention. Patient was found to have Iron deficiency anemia for which she was given IV Venofer x 1 dose and informed she will need an outpatient workup. Minutes to complete discharge: 36 Discharge Summary Reason For Visit: LEFT LEG PAIN Condition: Fair - Instructions Disposition: TRANSFER ACUTE CARE/OTHER HOSP - Home Medications Comprehensive Discharge Medication List: Ambulatory Orders Aspirin Coated [Ecotrin -] 325 mg PO DAILY 07/08/19 Calcium Polycarbophil [Fibercon] 2 PO 07/08/19 Centrum Silver Tablet PO DAILY 07/08/19 Docusate Sodium [Colace -] 200 mg PO DAILY 07/08/19 This patient is new to me today: Yes Date on this admission: 07/09/19 Emergency Visit: Yes ED Registration Date: 07/08/19 Care time: The patient presented to the Emergency Department on the above date and was hospitalized for further evaluation of their emergent condition. Critical Care patient: No - Discharge Referral Referred to [facility] Med P.C.: No ATTENDING PHYSICIAN STATEMENT I saw and evaluated the patient. I reviewed the resident's note and discussed the case with the resident. I agree with the resident's findings and plan as documented. SUBJECTIVE: OBJECTIVE: ASSESSMENT AND PLAN:
--- NOTE | 2019-07-09 16:44 | PN ---
Teaching Attending Note Name of Resident: Shirley Cannon ATTENDING PHYSICIAN STATEMENT I saw and evaluated the patient. I reviewed the resident's note and discussed the case with the resident. I agree with the resident's findings and plan as documented. SUBJECTIVE: Ongoing L hip pain. No fever/chills. No CP/SOB. OBJECTIVE: Afebrile, Hemodynamically Stable Last Vital Signs Temp Pulse Resp BP Pulse Ox 98.6 F 88 18 122/58 L 97 07/09/19 09:00 07/09/19 09:00 07/09/19 09:00 07/09/19 09:00 07/08/19 20:58 Heart - S1, S2, SM Lungs - clear to auscultation Abdomen - Soft, non-tender. Bowel Sounds normal. Extremities - LLE shortened and externally rotated, unable to flex at hip. Neuro - AAO x 3. Moving all other extremities besides LLE. Laboratory Results - last 24 hr 07/09/19 07/09/19 09:30 09:30 WBC 6.8 RBC 3.52 L Hgb 7.9 L Hct 25.9 L MCV 73.5 L MCH 22.6 L MCHC 30.7 L RDW 18.8 H Plt Count 343 D MPV 7.8 Absolute Neuts (auto) 4.5 Neutrophils % 65.7 Lymphocytes % 23.0 Monocytes % 9.0 Eosinophils % 1.6 D Basophils % 0.7 Nucleated RBC % 0 Sodium 142 Potassium 4.3 Chloride 111 H Carbon Dioxide 28 Anion Gap 4 L BUN 19.0 H Creatinine 0.6 Est GFR (CKD-EPI)AfAm 101.90 Est GFR (CKD-EPI)NonAf 87.92 Random Glucose 91 Calcium 8.3 L Ferritin 159.7 ASSESSMENT/PLAN 78 year old female with no significant PMH, OA, s/p prior L hip replacement ( 1998, [facility]), prior R hip replacement (2000, [facility]), admitted with dislocated L femoral prosthesis and intertrochanteric L femur fracture, failed reduction in ED. 1. Left femoral prosthesis dislocation and L femoral intertrochanteric fracture Failed ED attempt at reduction Evaluated by Orthopedic Sx - failed attempt at reduction in OR. Recommendation for transfer for revision surgery not able to be done at [facility] currently. Patient accepted to [facility] by Dr. Jaimes for evaluation and orthopedic intervention. 2. FILOMENA (Microcytic) - H/H dropping Iron Sat 17% Needs out-patient work-up. Given IV Venofer x 1 dose May need transfusion as required rolando-operatively. DVT Px - Lovenox SQ
== END 2019-07-09 10:29 | disposition short-term general hospital (02) | DRG 559 ==
LOC: JER 17:15 → JERBED 07-08 00:10 → J6S 07-08 01:34
PROVIDERS: ADMIT Internal Medicine
PROC: 0QS7XZZ Reposition Left Upper Femur, External Approach (ICD-10-PCS; principal; 2019-07-08 16:30)
DX: T84.021A Dislocation of internal left hip prosthesis, initial encounter (principal); S72.142A Displaced intertrochanteric fracture of left femur, initial encounter for closed fracture; I48.91 Unspecified atrial fibrillation; L55.9 Sunburn, unspecified; D50.9 Iron deficiency anemia, unspecified; Z78.9 Other specified health status; Z96.643 Presence of artificial hip joint, bilateral
CPT/HCPCS: 36415; 71045-TC-FY; 73523-TC-FY; 73552-TC-LT-FY; 73560-TC-LT-FY; 80048; 80053; 82728; 83540; 83550; 83735; 84100; 85025; 85027; 85610; 85730; 86850; 86900; 86901; 93005; 93010; 94760; 99285-25; J0131; J1756; J7030